=== PATIENT | male | born 1960 | race Caucasian/White ===

== ENCOUNTER 2020-10-22 09:27 | Inpatient (IN) | payer OTHER, SELFPAY ==
[2020-10-22] VITALS (12 sets, daily range): BP systolic 123–151; BP diastolic 81–90; PULSE 81–98; RESP 12–23; TEMP 36.7–37.1; O2SAT 96–100; BMI 18.7
--- NOTE | ~2020-10-22 | XR_ITS ---
EXAMINATION: XR chest 2V EXAM DATE: 10/22/2020 18:43 INDICATION: Lung nodule. TECHNIQUE: Frontal and lateral projections of the chest obtained and reviewed. Correlation is made to chest CT 06/05/2016. FINDINGS: Severe chronic hyperinflation. The lungs are clear. There are no pleural effusions. The cardiomediastinal silhouette is within normal limits. There is no pneumothorax suspected. Humeral s haft fracture identified on lateral projection. IMPRESSION: 1. No suspicious pulmonary opacities. 2. Hyperinflation. Reviewed, dictated and finalized at location A. ASOUND TECHNICIAN
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
[2020-10-22] MEDS: MORPHINE SULFATE (*CRX) 4 MG/ML INJ IV PUSH ×2 (11:53→16:29)
--- NOTE | 2020-10-22 12:27 | PC.NURSE ---
Call to Ina, pt's friend, per pt request. Phone # [phone]. Ina aware that pt is being admitted.
--- NOTE | 2020-10-22 12:40 | ADMGEN ---
This patient, Murphy Olivarez, was admitted to Medical Room 244-. Patient/family oriented to hospital policies and general routines including ID bracelet, bed and alarms, visiting hours, pain management, procedures, bathroom and other care routines, personal items, smoking policy, room service/diet, and visiting hours. Information on how to activate the Rapid Response Team has been discussed. Patient/Family are encouraged to report perceived risks to care and to ask questions if they do not understand what they are told or what they should do.
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
[2020-10-22] MEDS: ZOLPIDEM TARTRATE (*CRX) 5 MG TABLET 10 MG PO (20:23)
[2020-10-22] MEDS: THIAMINE HCL 100 MG TABLET PO (20:23)
[2020-10-23] MEDS: MORPHINE SULFATE (*CRX) 4 MG/ML INJ IV PUSH ×3 (00:47→12:57)
[2020-10-23] MEDS: IBUPROFEN IV 800 MG/200 ML 800 MG/200 ML BAG 370.37 MG IVPB ×2 (04:39→19:57)
[2020-10-23 05:13] VITALS: BP 116/78; PULSE 91; RESP 18; TEMP 36.3; O2SAT 96
[2020-10-23 06:19] LABS: Basophils Absolute Auto 0.1 K/mm3 (0.0-0.1); Basophils Percent Auto 0.6 % (0.2-1.2); Eosinophils Absolute Auto 0.2 K/mm3 (0-0.3); Hematocrit 42.3 % (42.0-52.0); Hemoglobin 14.6 g/dL (14.0-18.0); Immature Granulocyte Absolute 0.04 K/mm3 (0.00-0.031); Immature Granulocyte Percent A 0.4 % (0-0.5); Lymphocytes Absolute Auto 1.31 K/mm3 (0.9-3.2); Lymphocytes Percent Auto 13.4 % (18.3-44.2); Mean Corpuscular HGB Conc 34.5 g/dl (32-36); Mean Corpuscular Hemoglobin 32.7 pg (26-34); Mean Corpuscular Volume 94.6 fl (80-100); Mean Platelet Volume 9.9 fl (7.4-10.4); Monocytes Absolute Auto 1.1 K/mm3 (0.1-0.6); Neutrophils Absolute Auto 7.1 K/mm3 (1.3-6.7); Neutrophils Percent Auto 72.6 % (45.5-73.1); Platelet Count Result 252 k/mm3 (150-375); Red Blood Count 4.47 M/mm3 (4.6-6.20); Red Cell Distribution Width 12.8 % (11.5-14.5); White Blood Count 9.7 K/mm3 (4.5-10.0)
[2020-10-23 06:39] LABS: Anion Gap 2 mmol/L (8-16); Blood Urea Nitrogen 16 mg/dL (9-20); Calcium 8.3 mg/dL (8.4-10.2); Carbon Dioxide 31 mmol/L (22-30); Chloride 102 mmol/L (98-107); Estimated CRCL calculation 82 ml/min; Estimated Glomerular Filt Rate > 60; Glucose 111 mg/dL (75-110); Potassium 4.5 mmol/L (3.4-5.0); Sodium 135 mmol/L (137-145)
[2020-10-23] MEDS: THIAMINE HCL 100 MG TABLET PO (07:58)
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
[2020-10-23 14:00] VITALS: BP 115/75; PULSE 78; RESP 16; TEMP 36.6; O2SAT 97
--- NOTE | 2020-10-23 16:28 | ECG_ITS ---
Measurements Intervals [place] Rate: 82 P: 79 PA: 183 QRS: 84 QRSD: 105 T: 75 QT: 378 QTc: 444 Interpretive Statements SINUS RHYTHM INCOMPLETE RIGHT BUNDLE BRANCH BLOCK POOR R WAVE PROGRESSION, ANTERIOR LEADS BASELINE ARTIFACT- V4 BORDERLINE ECG Electronically Signed On 10-23-2020 16:51:24 GENERAL PEDIATRICIAN by Ralph Burnham D.O.
[2020-10-23 20:31] VITALS: BP 121/87; PULSE 90; RESP 18; TEMP 36.3; O2SAT 98
[2020-10-23] MEDS: ZOLPIDEM TARTRATE (*CRX) 5 MG TABLET 10 MG PO (20:38)
[2020-10-24] VITALS (16 sets, daily range): BP systolic 105–132; BP diastolic 65–87; PULSE 70–91; RESP 10–20; TEMP 35.6–37.2; O2SAT 91–100
[2020-10-24] MEDS: MORPHINE SULFATE (*CRX) 4 MG/ML INJ IV PUSH ×2 (04:28→20:10)
[2020-10-24 05:58] LABS: Basophils Absolute Auto 0.1 K/mm3 (0.0-0.1); Basophils Percent Auto 0.7 % (0.2-1.2); Eosinophils Absolute Auto 0.3 K/mm3 (0-0.3); Eosinophils Percent Auto 3.3 % (0-4.4); Hematocrit 41.1 % (42.0-52.0); Immature Granulocyte Absolute 0.02 K/mm3 (0.00-0.031); Immature Granulocyte Percent A 0.2 % (0-0.5); Lymphocytes Absolute Auto 1.27 K/mm3 (0.9-3.2); Lymphocytes Percent Auto 14.3 % (18.3-44.2); Mean Corpuscular HGB Conc 34.1 g/dl (32-36); Mean Corpuscular Hemoglobin 32.7 pg (26-34); Mean Platelet Volume 9.9 fl (7.4-10.4); Monocytes Absolute Auto 0.8 K/mm3 (0.1-0.6); Monocytes Percent Auto 9.4 % (2.6-8.5); Neutrophils Absolute Auto 6.4 K/mm3 (1.3-6.7); Neutrophils Percent Auto 72.1 % (45.5-73.1); Platelet Count Result 244 k/mm3 (150-375); Red Blood Count 4.28 M/mm3 (4.6-6.20); Red Cell Distribution Width 12.8 % (11.5-14.5); White Blood Count 8.9 K/mm3 (4.5-10.0)
[2020-10-24 06:04] LABS: Prothrombin Time 13.4 Seconds (11.1-14.7)
[2020-10-24 06:05] LABS: Partial Thromboplastin Time 30.1 SECONDS (22.3-36.8)
--- NOTE | 2020-10-24 07:00 | PC.NURSE ---
Patient to OR per bed. Report given by night RN Jose Ramon to Lorraine.
--- NOTE | 2020-10-24 07:20 | WPDHPUPDATE1 ---
History and Physical Update Update Date/Time: 10/24/20 07:20 History and Physical has been reviewed, including an updated exam of the patient. There are NO changes in the patient's condition. Risks, benefits, and alternatives have been discussed and questions answered. Patient agrees to proceed with procedure.
[2020-10-24] MEDS: LACTATED RINGERS 1,000 ML 30 ML IV CONT ×2 (07:32→10:24)
--- NOTE | 2020-10-24 07:44 | WPDANESPNB ---
Anes - Peripheral Nerve Block Date/Time: 10/24/20 07:44 I have discussed with the patient/family/POA the placement of a peripheral nerve block for post-operative pain management, including associated risks, benefits, complications, and side effects. Alternative methods of post-operative analgesia were detailed. Questions were solicited and answers provided to the satisfaction of the patient/family/POA. Time-Out: A pre-procedural Time-Out was completed immediately before starting the procedure and confirmed: Patient Identification, Site, Procedure, Patient Position and the Availability of Requisite Equipment. Clinical Indications: Acute post-operative pain management requested by the operative surgeon. Nerve Block Insertion Note Anes-nerve block: interscalene left Patient position: supine Skin prep: chlorhexidine Needle: 22 gauge, stimulating, insulated echogenic needle. Needle length: 50 mm Technique: ultrasound Injectate: bupivacaine 0.5% with epi 5 mcg/ml (30cc) Observations: tolerated well Complications: none Procedure start time:: 821 Procedure end time:: 824
[2020-10-24] MEDS: ceFAZolin 2 GM/D5W 50 ML 2 GM/50 ML BAG IVPB (08:29)
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
--- NOTE | 2020-10-24 11:39 | PC.NURSE ---
Patient returned from OR.
[2020-10-24] MEDS: THIAMINE HCL 100 MG TABLET PO (11:54)
[2020-10-24] MEDS: ACETAMINOPHEN 325 MG TABLET 650 MG PO (11:57)
[2020-10-24] MEDS: DOCUSATE SODIUM 100 MG CAPSULE PO (16:02)
[2020-10-24] MEDS: IBUPROFEN IV 800 MG/200 ML 800 MG/200 ML BAG 250 MG IVPB (16:46)
[2020-10-24] MEDS: FAMOTIDINE 20 MG TABLET PO (20:14)
[2020-10-24] MEDS: ZOLPIDEM TARTRATE (*CRX) 5 MG TABLET 10 MG PO (20:15)
[2020-10-24] MEDS: IBUPROFEN 400 MG TABLET 800 MG PO (22:32)
[2020-10-25] MEDS: HYDROcodone/acetaminophen (*CRX) 7.5-325 MG TABLET 1 TAB PO ×3 (00:20→08:22)
[2020-10-25 01:12] VITALS: BP 130/68; PULSE 75; RESP 20; TEMP 36.1; O2SAT 100
[2020-10-25 05:01] VITALS: BP 127/96; PULSE 90; RESP 20; TEMP 36.4; O2SAT 95
[2020-10-25 05:38] LABS: Basophils Absolute Auto 0.1 K/mm3 (0.0-0.1); Basophils Percent Auto 0.8 % (0.2-1.2); Eosinophils Absolute Auto 0.3 K/mm3 (0-0.3); Eosinophils Percent Auto 3.1 % (0-4.4); Hematocrit 36.5 % (42.0-52.0); Hemoglobin 12.5 g/dL (14.0-18.0); Immature Granulocyte Absolute 0.03 K/mm3 (0.00-0.031); Immature Granulocyte Percent A 0.3 % (0-0.5); Lymphocytes Absolute Auto 0.86 K/mm3 (0.9-3.2); Lymphocytes Percent Auto 9.3 % (18.3-44.2); Mean Corpuscular HGB Conc 34.2 g/dl (32-36); Mean Corpuscular Hemoglobin 33.1 pg (26-34); Mean Corpuscular Volume 96.6 fl (80-100); Mean Platelet Volume 9.8 fl (7.4-10.4); Monocytes Percent Auto 10.5 % (2.6-8.5); Platelet Count Result 233 k/mm3 (150-375); Red Blood Count 3.78 M/mm3 (4.6-6.20); Red Cell Distribution Width 12.4 % (11.5-14.5); White Blood Count 9.3 K/mm3 (4.5-10.0)
[2020-10-25 05:53] LABS: Anion Gap 0 mmol/L (8-16); Blood Urea Nitrogen 14 mg/dL (9-20); Carbon Dioxide 33 mmol/L (22-30); Chloride 102 mmol/L (98-107); Estimated CRCL calculation 93 ml/min; Estimated Glomerular Filt Rate > 60; Glucose 133 mg/dL (75-110); Potassium 4.1 mmol/L (3.4-5.0); Sodium 135 mmol/L (137-145)
[2020-10-25] MEDS: DOCUSATE SODIUM 100 MG CAPSULE PO (08:14)
[2020-10-25] MEDS: FAMOTIDINE 20 MG TABLET PO (08:15)
[2020-10-25] MEDS: THIAMINE HCL 100 MG TABLET PO (08:15)
[2020-10-25 09:12] VITALS: BP 122/83; PULSE 85; RESP 20; TEMP 36.2; O2SAT 95
--- NOTE | 2020-10-25 10:29 | P.PNAN_ITS ---
Anes - Prog Note Post-Op Date/Time: 10/25/20 10:29 Cardiovascular status: normal Respiratory status: normal Airway patency: baseline Mental status: baseline Post-Op hydration status: normal Vital Signs: Last Vital Signs Temp 36.2 C L 10/25/20 09:12 Pulse 85 10/25/20 09:12 Resp 20 10/25/20 09:12 BP 122/83 10/25/20 09:12 Pulse Ox 95 10/25/20 09:12 Pain Score (VAS): 0 I/O: Intake & Output 10/24/20 10/25/20 10/25/20 23:59 07:59 15:59 Intake Total 940 490 250 Balance 940 490 250 Laboratory Tests 10/25/20 05:16 10/25/20 05:16 10/25/20 10/25/20 05:16 05:16 WBC 9.3 RBC 3.78 L Hgb 12.5 L Hct 36.5 L MCV 96.6 MCH 33.1 MCHC 34.2 RDW 12.4 Plt Count 233 MPV 9.8 Immature Gran % (Auto) 0.3 Neut % (Auto) 76.0 H Lymph % (Auto) 9.3 L [place] % (Auto) 10.5 H Eos % (Auto) 3.1 Baso % (Auto) 0.8 Lymph # (Auto) 0.86 L [place] # (Auto) 1.0 H Eos # (Auto) 0.3 Baso # (Auto) 0.1 Abs Immat Gran (auto) 0.03 Absolute Neuts (auto) 7.0 H Absolute Nucleated RBC 0.0 Nucleated RBC % 0.0 Sodium 135 L Potassium 4.1 Chloride 102 Carbon Dioxide 33 H Anion Gap 0 L BUN 14 Creatinine 0.70 Estim Creat Clear Calc 93 Estimated GFR > 60 Glucose 133 H Calcium 8.0 L Post-procedural complaints: none Patient Feedback: Patient satisfied with anesthetic care.
--- NOTE | 2020-10-25 11:35 | PC.NURSE ---
Patient provided with supplies for at home dressing changes. Patient was instructed in depth on dressing changes, etc. to do at home. Verbalized understanding.
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
== END 2020-10-25 11:36 | disposition home or self-care (01) | DRG 315 ==
LOC: ANHED 11:08 → ANH2MED 12:06
PROVIDERS: Admitting Provider Orthopaedic Surgery; Emergency Provider Emergency Medicine; PCP Family Medicine; Visit Provider Nurse Practitioner Family
PROC: 0PHD36Z Insertion of Intramedullary Internal Fixation Device into Left Humeral Head, Percutaneous Approach (ICD-10-PCS; principal; 2020-10-24 08:30)
DX: S42.292A Other displaced fracture of upper end of left humerus, initial encounter for closed fracture (principal); W17.89XA Other fall from one level to another, initial encounter; M19.90 Unspecified osteoarthritis, unspecified site; I10 Essential (primary) hypertension; F17.210 Nicotine dependence, cigarettes, uncomplicated; F10.10 Alcohol abuse, uncomplicated
CPT/HCPCS: 36415; 71046; 73030; 73060; 80048; 85025; 85610; 85730; 93005; 96361; 96365; 96366; 96374; 96375; 96376; 97110; 97161; 97165; 97530; 99285; A4565; A9270; C1713; G0378; G0379; J0330; J0690; J1741; J2250; J2270; J2405; J2704; J3010; J7120

== ENCOUNTER 2020-12-04 20:15 | Emergency (ER) | payer OTHER, SELFPAY ==
--- NOTE | ~2020-12-04 | XR_ITS ---
EXAMINATION: XR abdomen/kub 1V EXAM DATE: 12/04/2020 21:39 INDICATION: constipation X 9 days, pain in rectum. TECHNIQUE: Frontal projection of the upper abdomen, frontal projection lower abdomen/pelvis for inter pretation. There is no prior study for comparison. FINDINGS: Large amount of stool in the rectal vault, otherwise moderate amount of colonic stool. No s mall bowel dilation, nonobstructive bowel gas pattern. There are no suspicious calcifications ident ified. There is no organomegaly suspected. There is moderate bilateral hip primary osteoarthritis. IMPRESSION: Large amount of rectosigmoid stool. Reviewed, dictated and finalized at location A. [facility]
[2020-12-04 20:20] VITALS: BP 116/83; PULSE 105; RESP 20; TEMP 36.4; O2SAT 100
--- NOTE | 2020-12-04 21:32 | PC.NURSE ---
Pt taken to XRay
[2020-12-04] MEDS: MAGNESIUM CITRATE 300 ML BTL PO (21:41)
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
--- NOTE | 2020-12-04 23:36 | PC.NURSE ---
Pt was able to have several stools before leaving
== END 2020-12-04 23:36 | disposition home or self-care (01) ==
PROVIDERS: Emergency Provider Family Medicine; PCP Family Medicine
DX: K59.01 Slow transit constipation (principal); I10 Essential (primary) hypertension; M19.90 Unspecified osteoarthritis, unspecified site; F17.210 Nicotine dependence, cigarettes, uncomplicated
CPT/HCPCS: 74018; 99283; A9270

== ENCOUNTER 2021-07-23 01:40 | Day surgery (SDC) | payer OTHER, SELFPAY ==
[2021-07-21 08:52] VITALS: BMI 21.1
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
[2021-07-23] VITALS (8 sets, daily range): BP systolic 133–157; BP diastolic 79–103; PULSE 59–82; RESP 11–18; TEMP 36.2–37.1; O2SAT 99–100
[2021-07-23] MEDS: ACETAMINOPHEN 500 MG TABLET 1000 MG PO (09:34)
[2021-07-23] MEDS: LACTATED RINGERS 1,000 ML 30 ML IV CONT ×2 (09:58→12:36)
[2021-07-23] MEDS: KETOROLAC 15 MG/ML VIAL (*BKC) IV PUSH (10:02)
--- NOTE | 2021-07-23 10:24 | SUR.PREOP ---
PT STATES NOTIFY FRIEND ONLY FOR TRANSPORT AND/OR EMERGENCY. PT STATES HAS [employer] FOR HELP ONCE DC'D TO HOME
--- NOTE | 2021-07-23 10:43 | WPDHPUPDATE1 ---
History and Physical Update Update Date/Time: 07/23/21 10:43 History and Physical has been reviewed, including an updated exam of the patient. There are NO changes in the patient's condition. Risks, benefits, and alternatives have been discussed and questions answered. Patient agrees to proceed with procedure.
[2021-07-23] MEDS: ceFAZolin 2 GM/D5W 50 ML 2 GM/50 ML BAG IVPB (11:14)
[2021-07-23] MEDS: BUPIVACAINE HCL 0.5% PF 30 ML VIAL INFILTRATE (11:32)
--- NOTE | 2021-07-23 12:25 | W.PM.PROC2 ---
Procedure Note - Detailed Date of Procedure 07/23/21 Pre-op Diagnosis right inguinal hernia Post-op Diagnosis same (Direct right inguinal hernia) Procedure Performed Laparoscopic right inguinal hernia repair with mesh, da Aileen assisted Surgeon Alberto Valero, Anesthesia general and local (0.5% bupivacaine) Indications This is a 61-year-old man who presented with right groin pain and a bulge that he noticed about 1 month ago. He denies any severe pain, but does notice some discomfort with activity. A reducible right inguinal hernia was identified on physical exam. Discussions were made with the patient about treatment options and decision was made to proceed with a robotic assisted laparoscopic right inguinal hernia repair with mesh. Findings Laparoscopic right inguinal hernia repair was performed. A moderate-sized direct right inguinal hernia was identified on exam laparoscopically. There was no evidence of left inguinal hernia. A robotic assisted transabdominal preperitoneal approach was utilized. A Bard 3DMax large right mesh was placed overlying the entire right myopectineal orifice. No specimens were obtained for pathology. Description of Procedure Procedure as well as risks, benefits, and alternatives were discussed with the patient. Written consent was obtained and placed in chart prior to procedure. Patient was brought back to surgical suite. He was placed supine on operating table. Time-out was done to confirm patient and procedure. He was then intubated by Anesthesia Department. His abdomen was prepped and draped in sterile fashion using chlorhexidine prep. 0.5% bupivacaine with epinephrine was infiltrated at each location for incision. A 12 millimeter transverse incision was made just superior to the umbilicus using a 15 blade scalpel. Blunt dissection was carried out down to the linea alba. A vertical incision was made at the linea alba using a 15 blade scalpel. The peritoneum was then bluntly entered. A 12 millimeter trocar was inserted and carbon dioxide insufflation was used to create a pneumoperitoneum. A camera was inserted and the abdominal cavity was inspected. The patient was placed in slight Trendelenburg position. An 8 millimeter incision was made on the right lateral abdomen and an 8 millimeter trocar was inserted under direct visualization. Another 8 millimeter incision was made in the left lateral abdomen and an 8 millimeter trocar was inserted under direct visualization. The robotic arms were brought up to the patient's bedside and secured to the ports. The camera and instruments were inserted. I then moved over to the robotic console and took control of the camera and instruments. After careful inspection of the abdominal cavity, I began scoring the peritoneum along the right lower quadrant using scissors with electrocautery. The preperitoneal plane was entered and this was carefully dissected caudally along the inferior epigastric vessels. Careful dissection with scissors with electrocautery and blunt dissection was used to continue this dissection. I dissected far enough laterally to allow for mesh placement, and also dissected medially to identify the pubic arch and Maxx's ligament. The hernia sac was identified and carefully dissected posteriorly. The cord contents were also identified and the peritoneum was carefully dissected far enough posteriorly to allow for mesh placement. Once an adequate pocket was created, I then placed the mesh within the preperitoneal pocket and carefully unfolded it. The mesh was centered on the hernia defect with adequate overlap circumferentially. The inferior edge of the mesh was inspected to ensure that it was far enough away from the peritoneal edge. The mesh appeared in proper position overlying the entire myopectineal orifice. The mesh was then secured using 3-0 Vicryl simple interrupted sutures at Maxx's ligament and along the superior edge of the mesh. The perit
[2021-07-23] MEDS: fentaNYL CITRATE INJ (*CRX) 100 MCG/2 ML VIAL 25 MCG IV PUSH ×2 (13:24→13:30)
[2021-07-23] MEDS: oxyCODONE HCL (*CRX) 5 MG TAB IR PO (14:38)
--- NOTE | 2021-07-23 15:00 | SUR.PHASEII ---
1440: Patient's vitals are stable and he is just waiting for a ride. He is unhooked from the monitors and ready to go.
== END 2021-07-23 15:10 | disposition home or self-care (01) ==
PROVIDERS: PCP Family Medicine; Visit Provider Surgery
PROC: 8E0Y4CZ Robotic Assisted Procedure of Lower Extremity, Percutaneous Endoscopic Approach (ICD-10-PCS; CPT 49650; principal; 2021-07-23 11:30)
DX: K40.90 Unilateral inguinal hernia, without obstruction or gangrene, not specified as recurrent (principal); I10 Essential (primary) hypertension; F17.210 Nicotine dependence, cigarettes, uncomplicated
CPT/HCPCS: 49650; S2900; 36415; 86850; 86900; 86901; A9270; J0330; J0690; J1100; J1170; J1885; J2250; J2270; J2405; J2704; J3010; J7120

== ENCOUNTER 2022-06-11 12:19 | Outpatient (CLI) | payer OTHER, SELFPAY ==
--- NOTE | ~2022-06-11 | CT_ITS ---
EXAMINATION:CT lung screening DATE: 06/11/2022 12:45 INDICATION: Personal history of tobacco dependence. Current smoker with 43 pack year history. TECHNIQUE: Computed tomography (CT) of the chest was performed without intravenous contrast. Automate d exposure control and iterative reconstruction technique were employed. The dose-length product (DLP ) was 77.02 mGy-cm. COMPARISON: Chest CT 06/05/2016 FINDINGS: There is moderate emphysema. There is mild atelectasis bilaterally. There are stable 4 mm a nd 3 mm nodules in right lower lobe. There are there centrilobular nodules and tree-in-bud opacities in left lower lobe, consistent with pneumonia. There is a stable 5 mm nodule in left lower lobe. Ther e is mucous plugging in left lower lobe. There is a stable 3 mm nodule in left upper lobe. No pleural effusion. The heart size is normal. No pericardial effusion. There are coronary artery calcification s. There is mild thoracic spondylosis. There is mild chronic anterior wedging of multiple vertebral b odies. IMPRESSION: 1. Lung-RADS category 2: Benign appearance or behavior. Continue annual screening with noncontrast lo w-dose chest CT in 12 months. 2. Mild pneumonia in left lower lobe. Reviewed, dictated and finalized at location A. IMPRESSION: 1. Lung-RADS category 2: Benign appearance or behavior. Continue annual screeni ng with noncontrast low-dose chest CT in 12 months. 2. Mild pneumonia in left lower lobe.
== END 2022-06-11 12:20 | disposition home or self-care (01) ==
LOC: ANHIMG 12:21
PROVIDERS: PCP Physician Assistant; Visit Provider Physician Assistant
DX: Z12.2 Encounter for screening for malignant neoplasm of respiratory organs (principal); F17.200 Nicotine dependence, unspecified, uncomplicated; J18.9 Pneumonia, unspecified organism
CPT/HCPCS: 71271

== ENCOUNTER 2023-07-20 10:22 | Outpatient (CLI) | payer OTHER, SELFPAY ==
--- NOTE | ~2023-07-20 | CT_ITS ---
EXAMINATION:CT lung screening DATE: 07/20/2023 10:52 INDICATION: Personally of nicotine dependence. Current smoker with 43 pack year history. TECHNIQUE: Computed tomography (CT) of the chest was performed without intravenous contrast. Automate d exposure control and iterative reconstruction technique were employed. The dose-length product (DLP ) was 86.11 mGy-cm. COMPARISON: Chest CT 06/11/2022 FINDINGS: There is moderate emphysema. Again seen is a 5 mm nodule in right lower lobe. Again seen is a 4 mm nodule in left lower lobe. Again seen is a 4 mm nodule in left upper lobe. There is mild scar ring at the lung apices. No pleural effusion. The heart size is normal. There are coronary artery leisa cifications. No pericardial effusion. 18 mm cyst in the liver. There is a 2.6 cm mass in right adrena l gland measuring low attenuation, consistent with an adenoma. There is mild thoracic spondylosis. Th ere is mild chronic anterior wedging of multiple vertebral bodies. IMPRESSION: 1. Lung-RADS category 2: Benign appearance or behavior. Continue annual screening with noncontrast lo w-dose chest CT in 12 months. Reviewed, dictated and finalized at location E. IMPRESSION: 1. Lung-RADS category 2: Benign appearance or behavior. Continue annual screeni ng with noncontrast low-dose chest CT in 12 months.
== END 2023-07-20 10:23 | disposition home or self-care (01) ==
LOC: ANHIMG 10:27
PROVIDERS: PCP Physician Assistant; Visit Provider Physician Assistant
DX: Z12.2 Encounter for screening for malignant neoplasm of respiratory organs (principal); J44.9 Chronic obstructive pulmonary disease, unspecified; Z87.891 Personal history of nicotine dependence
CPT/HCPCS: 71271

== ENCOUNTER 2024-11-15 09:22 | Emergency (ER) | payer OTHER, SELFPAY ==
[2024-11-15 09:44] VITALS: BP 102/63; PULSE 100; RESP 16; TEMP 35.9; O2SAT 96
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
[2024-11-15 10:41] LABS: EDCOVIDSCREEN Positive (Negative); EDINFLUASCREEN Negative (Negative); EDINFLUBSCREEN Negative (Negative)
== END 2024-11-15 10:59 | disposition home or self-care (01) ==
PROVIDERS: Emergency Provider Nurse Practitioner; PCP Physician Assistant
DX: U07.1 COVID-19 (principal); J44.1 Chronic obstructive pulmonary disease with (acute) exacerbation; F17.210 Nicotine dependence, cigarettes, uncomplicated; I10 Essential (primary) hypertension; M19.90 Unspecified osteoarthritis, unspecified site
CPT/HCPCS: 87426; 87804; 99213; G0463